=== PATIENT | female | born 1950 | race Caucasian/White ===

== ENCOUNTER → 2017-11-15 13:39 | Outpatient (CLI) | payer MEDICARE | END | disposition home or self-care (01) | LOC: D.CT 13:39 | DX: R91.8 Other nonspecific abnormal finding of lung field (principal) ==

== ENCOUNTER → 2018-02-23 18:58 | Outpatient (CLI) | payer MEDICARE | END | disposition home or self-care (01) | LOC: D.MAMMO 02-10 14:45 | DX: Z12.31 Encounter for screening mammogram for malignant neoplasm of breast (principal) ==

== ENCOUNTER 2018-03-21 08:00 | Outpatient (CLI) | payer MEDICARE | END 2018-03-21 08:01 | disposition home or self-care (01) | LOC: D.MAMMO 08:00 | DX: R92.8 Other abnormal and inconclusive findings on diagnostic imaging of breast (principal) ==

== ENCOUNTER → 2018-09-22 13:22 | Outpatient (CLI) | payer MEDICARE, MEDICAID | END | disposition home or self-care (01) | LOC: D.RT 09-08 10:00 → D.RAD 09-08 10:45 → D.LAB 09-08 11:00 → D.RT 13:22 | DX: J44.9 Chronic obstructive pulmonary disease, unspecified (principal) ==